=== PATIENT | female | born 1960 | race Caucasian/White ===

== ENCOUNTER 2022-01-28 11:38 | Outpatient (CLI) | payer BC, SELFPAY ==
--- NOTE | ~2022-01-28 | CT_ITS ---
EXAMINATION: CT abdomen pelvis wo con DATE: 01/28/2022 12:03 INDICATION: Acute abdominal pain TECHNIQUE: Computed tomography (CT) of the abdomen and pelvis was performed without intravenous contr ast. The dose-length product (DLP) was 1465.73 mGy-cm. Automated exposure control and iterative recon struction technique were employed. COMPARISON: 12/03/2018 FINDINGS: There are chronic reticulonodular opacities of the visualized midlung zones. The heart size is normal. There is a small sliding hiatal hernia. Stones are present in the nondistended gallbladde r. The liver, spleen, pancreas, and adrenal glands are normal. The kidneys are unremarkable. No patho logically enlarged abdominal or pelvic lymph nodes are identified. There is no free intraperitoneal g as or evidence of bowel obstruction. The appendix is normal. A moderate volume of colonic stool is pr esent. There is mild lumbar spondylosis. IMPRESSION: 1. Cholelithiasis. 2. Chronic reticular nodular opacities of the visualized mid lung zones with differential including s arcoidosis. Reviewed, dictated and finalized at location A. IMPRESSION: 1. Cholelithiasis. 2. Chronic reticular nodular opacities of the visualized mid lung zones with di fferential including sarcoidosis.
== END 2022-01-28 11:39 | disposition home or self-care (01) ==
PROVIDERS: PCP Family Medicine; Visit Provider Family Medicine
DX: R10.31 Right lower quadrant pain (principal); K80.20 Calculus of gallbladder without cholecystitis without obstruction; R91.8 Other nonspecific abnormal finding of lung field
CPT/HCPCS: 74176